=== PATIENT | male | born 1985 | race Two or more races ===

== ENCOUNTER 2024-10-12 12:11 | Emergency (ER) | payer MEDICAID ==
[~2024-10-12] VITALS: Ht 188 cm; Wt 106.6 kg
[2024-10-12 12:28] VITALS: BP 139/89
[2024-10-12] MEDS ORDERED: AMOX-430 PO (13:08)
[2024-10-12] MEDS ORDERED: GENT5DRO4 EACHEYE (13:08)
[2024-10-12] MEDS ORDERED: AMOXICILLIN-CLAVUL 875-125MG TABLET ONE (13:11)
[2024-10-12] MEDS: AMOXICILLIN-CLAVUL 875-125MG TABLET PO ONE (13:12)
[2024-10-12 13:18] VITALS: BP 139/89; TEMP 97.5; O2SAT 98
== END 2024-10-12 13:19 | disposition home or self-care (01) ==
LOC: ER 12:22
DX: H10.89 Other conjunctivitis (principal)
CPT/HCPCS: A4606; A4663